=== PATIENT | male | born 1955 | race African-American/Black ===

== ENCOUNTER 2017-07-17 10:11 | Emergency (ER) | payer BC, OTHER ==
[2017-07-17] MEDS ORDERED: Ketorolac Tromethamine 30 MG/ML VIAL ONE (10:42)
[2017-07-17 10:56] LABS: #Basophils 0.1 thou/uL (0.0-0.2); #Eosinphils 0.1 thou/uL (0.0-0.7); #Lymphocytes 1.2 thou/uL (1.20-3.40); #Monocytes 1.4 thou/uL (0.11-0.59); #Neutrophils 14.6 thou/uL (1.40-6.50); %Basophils 0.5 % (0.0-1.0); %Eosinophils 0.4 % (0.0-10.0); %Lymphocytes 6.8 % (21.0-51.0); %Monocytes 8.1 % (0.0-10.0); %Neutrophils 84.2 % (42.0-75.0); Hemoglobin 14.8 g/dL (14.0-18.0); Mean Corpuscular HGB CONC 32.4 g/dL (32.0-36.0); Mean Corpuscular Hemoglobin 33.1 pg (27.0-31.0); Mean Platelet Volume 7.6 fL (7.4-10.4); Platelet Count 172 thou/uL (130-400); Red Blood Cell (RBC) Count 4.47 mill/uL (4.70-6.10); White Blood Cell (WBC) Count 17.3 thou/uL (4.8-10.8)
[2017-07-17] MEDS ORDERED: Cyclobenzaprine 10 MG TAB ONE (11:08)
[2017-07-17 11:20] LABS: ALT (SGPT) 22 U/L (8-55); AST (SGOT) 20 U/L (5-34); Albumin 4.1 g/dL (3.5-5.0); Alkaline Phosphatase 71 U/L (40-150); Anion Gap 15 mmol/L (10-20); BUN (Urea Nitrogen) 18 mg/dL (8.4-25.7); Calc. Creatinine Clearance 0 mL/min (70-130); Calcium 10.1 mg/dL (7.8-10.44); Carbon Dioxide 23 mmol/L (22-29); Chloride 104 mmol/L (98-107); Estimated GFR-MDRD 80; Globulin 3.1 g/dL (2.4-3.5); Glucose 110 mg/dL (70-105); Potassium 3.8 mmol/L (3.5-5.1); Protein, Total 7.2 g/dL (6.0-8.3); Sodium 138 mmol/L (136-145)
--- NOTE | 2017-07-17 11:47 | RAD ---
TWO VIEW CHEST: Clinical history: Chest pain. FINDINGS: There is no consolidation or effusion. No discrete pneumothorax. Cardiac silhouette is within normal size. IMPRESSION: No focal consolidation. POS: [facility]
--- NOTE | 2017-07-17 13:33 | CT ---
CT LUMBAR SPINE WITHOUT CONTRAST: History: Right lower back pain. Muscle spasms. Comparison: None. FINDINGS: The aortic contour is non-aneurysmal. There are moderate vascular calcifications. No calcifications are seen within the renal collecting systems were visualized. Mild thickening of the urinary bladder wall. No acute fracture or malalignment of the lumbar spine. No lumbosacral transitional vertebrae. L1-2: Mild degenerative disc space height loss. Mild facet arthropathy. There is mild bilateral neura l foraminal narrowing. The spinal canal measures approximately 11 mm L2-3: Mild joint space disc height loss. Low grade circumferential disc bulge. Mild facet arthrosis. Increased posterior epidural fat. Spinal canal measures approximately 8 mm. There is moderate left an d right sided neural foraminal narrowing. L3-4: There is moderate degenerative disc space height loss. Schmorl's node at the inferior endplate of L3. Right basilar compression disc bulge. ===== measures approximately 6 mm. There is moderate fac et arthropathy. There is severe right and moderate left sided neural foraminal narrowing. On the righ t, the neural foraminal narrowing is probably due to an osteophyte off the facets. L4-5: Moderate disc space height loss. There is vacuum disc phenomenon at this level as well as the L 3-4. Spinal canal measures 8 mm. Moderate facet arthropathy. Moderate left and moderate to severe rig ht sided neural foraminal narrowing probably due to osteophyte formation of the facets. L5-S1: Mild facet arthrosis. Spinal canal is not narrowed. There is mild bilateral neural foraminal n arrowing. IMPRESSION: 1. Multilevel spondylosis as described above, greatest at L3-4 and L4-5. 2. 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 3. No acute fracture or malalignment of the lumbar spine. POS: [facility]
[2017-07-17 14:00] LABS: Bilirubin Negative (Negative); Blood, Urine Negative (Negative); Clarity CLEAR (Clear); Glucose, Urine (Dipstick) Negative (Negative); Leukocyte Negative (Negative); Nitrite Positive (Negative); Protein, Urine (Dipstick) Negative (Neg-Trace); Specific Gravity, Urine 1.013 (1.002-1.036); Urobilinogen 0.2 mg/dL (0.2-1.0); pH, Urine 6.5 (5.0-9.0)
[2017-07-17 14:03] LABS: Bacteria/HPF None Seen HPF (None Seen); Hyaline Casts/LPF 0-3 HYALINE CAST LPF (0-3 Hyaline); RBC/HPF None Seen HPF (0-3); Squamous Epithelial None Seen HPF (0-3); WBC/HPF None Seen HPF (0-3)
[2017-07-17 14:23] LABS: Crystals/HPF 2+ CA OXALATE HPF (Negative)
== END 2017-07-17 15:05 | disposition home or self-care (01) ==
LOC: ERS 10:11
DX: M79.1 Myalgia (principal); E78.5 Hyperlipidemia, unspecified; F17.210 Nicotine dependence, cigarettes, uncomplicated
CPT/HCPCS: 36415; 71046; 72131; 80053; 81003; 81015; 85025; 87086; 96372; J1885

== ENCOUNTER 2017-11-07 12:34 | Emergency (ER) | payer BC ==
--- NOTE | 2017-11-07 13:46 | RAD ---
THREE VIEWS LUMBAR SPINE: Date: 11-07-17 History: Trauma. Difficulty ambulating. Comparison: 02-06-11 FINDINGS: There are five non-rib bearing lumbar type vertebral bodies. Multilevel osteophytes are present with mild narrowing of the intervertebral disc spaces at the L3-4 and L4-5 levels. Vertebral body heights are within normal limits. No fracture or subluxation is seen. There has been no interval change when compared to the prior exam. IMPRESSION: Mild degenerative changes in the lumbar spine, but no acute osseous abnormality is seen. POS: [facility]
== END 2017-11-07 14:59 | disposition home or self-care (01) ==
LOC: ERS 12:34
DX: M54.5 Low back pain (principal); G89.29 Other chronic pain; E78.5 Hyperlipidemia, unspecified; F17.210 Nicotine dependence, cigarettes, uncomplicated; Z79.899 Other long term (current) drug therapy
CPT/HCPCS: 72100

== ENCOUNTER 2018-07-11 10:26 | Emergency (ER) | payer BC, MEDICAID, OTHER, SELFPAY ==
[2018-07-11] MEDS ORDERED: Dexamethasone 10 MG/ML VIAL ONE (11:08)
[2018-07-11] MEDS ORDERED: Metoclopramide HCl 10 MG/2 ML VIAL ONE (11:08)
[2018-07-11] MEDS ORDERED: Ketorolac Tromethamine 30 MG/ML VIAL ONE (11:08)
[2018-07-11 11:30] LABS: Hemoglobin 13.6 g/dL (14.0-18.0); Mean Corpuscular HGB CONC 34.3 g/dL (32.0-36.0); Mean Corpuscular Hemoglobin 33.9 pg (27.0-31.0); Mean Corpuscular Volume 98.8 fL (78.0-98.0); Platelet Count 204 thou/uL (130-400); RBC Distribution Width 12.7 % (11.5-14.5); Red Blood Cell (RBC) Count 4.02 mill/uL (4.70-6.10); White Blood Cell (WBC) Count 7.4 thou/uL (4.8-10.8)
[2018-07-11 11:38] LABS: ALT (SGPT) 23 U/L (8-55); AST (SGOT) 21 U/L (5-34); Albumin 3.7 g/dL (3.4-4.8); Alkaline Phosphatase 75 U/L (40-150); Anion Gap 13 mmol/L (10-20); BUN (Urea Nitrogen) 14 mg/dL (8.4-25.7); Bilirubin, Total 0.5 mg/dL (0.2-1.2); Calc. Creatinine Clearance 0 mL/min (70-130); Calcium 9.2 mg/dL (7.8-10.44); Carbon Dioxide 23 mmol/L (23-31); Chloride 107 mmol/L (98-107); Estimated GFR-MDRD 87; Globulin 3.4 g/dL (2.4-3.5); Glucose 101 mg/dL (80-115); Potassium 3.4 mmol/L (3.5-5.1); Protein, Total 7.1 g/dL (5.8-8.1); Sodium 140 mmol/L (136-145)
[2018-07-11 11:48] LABS: Band 1 % (5-11); Eosinophils 4 % (0-10); Lymphocytes 16 % (21-51); MDiff Complete? YES; Monocytes 13 % (0-10); Neutrophil 50 % (42-75); Nucleated RBC 1 % (0); PLT Morphology Comment Appears Adequate; Reactive Lymphocytes 16 % (0-10)
--- NOTE | 2018-07-11 13:49 | CT ---
NONCONTRAST CT HEAD: DATE: 07/11/2018. HISTORY: Headache for 5 days. COMPARISON: 02/06/2011. FINDINGS: There is no evidence of a hemorrhage, acute infarction, mass effect, or midline shift. The ventricul ar system is normal in size, shape, and position. Mucosal thickening is seen in a few ethmoidal air cells on the right. Mastoid air cells are clear. Calvarial structures are intact. No other interva l change. IMPRESSION: 1. No acute intracranial abnormalities demonstrated. 2. Minimal sinus disease. POS: [facility]
== END 2018-07-11 12:25 | disposition home or self-care (01) ==
LOC: ERS 10:26
DX: R51 Headache (principal); E78.5 Hyperlipidemia, unspecified; F17.210 Nicotine dependence, cigarettes, uncomplicated; Z79.899 Other long term (current) drug therapy
CPT/HCPCS: 36415; 70450; 80053; 85025; 96361; 96374; 96375; J1100; J1885; J2765

== ENCOUNTER 2018-09-19 13:52 | Emergency (ER) | payer OTHER ==
--- NOTE | 2018-09-19 14:34 | RAD ---
RADIOGRAPH ABDOMEN 1 VIEW: DATE: 09/19/2018. TIME: 2:03 p.m. HISTORY: A 62-year-old male with constipation. FINDINGS: A single supine KUB. Moderate amount of stool in the rectum. Gas in multiple nondilated loops of sm all intestine and colon in the upper portion of the abdominal cavity. No evidence of organomegaly. IMPRESSION: No evidence of small bowel obstruction. POS: [facility]
== END 2018-09-19 15:00 | disposition home or self-care (01) ==
LOC: ERS 13:52
DX: K59.00 Constipation, unspecified (principal); E78.5 Hyperlipidemia, unspecified; F17.210 Nicotine dependence, cigarettes, uncomplicated; Z79.899 Other long term (current) drug therapy
CPT/HCPCS: 74018

== ENCOUNTER 2018-12-28 05:33 | Emergency (ER) | payer OTHER ==
[2018-12-28] MEDS ORDERED: Morphine 4 MG/ML VIAL ONE (06:09)
[2018-12-28] MEDS ORDERED: Ketorolac Tromethamine 30 MG/ML VIAL ONE (06:09)
[2018-12-28 06:13] LABS: Hemoglobin 14.7 g/dL (14.0-18.0); Mean Corpuscular HGB CONC 33.8 g/dL (32.0-36.0); Mean Corpuscular Hemoglobin 33.4 pg (27.0-31.0); Mean Corpuscular Volume 98.9 fL (78.0-98.0); Mean Platelet Volume 7.8 fL (7.4-10.4); Platelet Count 168 thou/uL (130-400); RBC Distribution Width 12.6 % (11.5-14.5)
[2018-12-28 06:27] LABS: Eosinophils 3 % (0-10); Lymphocytes 23 % (21-51); MDiff Complete? YES; Monocytes 13 % (0-10); Neutrophil 61 % (42-75); Platelet Morphology Comment Appears Adequate
[2018-12-28 06:32] LABS: ALT (SGPT) 16 U/L (8-55); AST (SGOT) 16 U/L (5-34); Albumin 4.2 g/dL (3.4-4.8); Alkaline Phosphatase 73 U/L (40-150); Anion Gap 15 mmol/L (10-20); BUN (Urea Nitrogen) 14 mg/dL (8.4-25.7); Calc. Creatinine Clearance 0 mL/min (70-130); Calcium 9.6 mg/dL (7.8-10.44); Carbon Dioxide 26 mmol/L (23-31); Chloride 102 mmol/L (98-107); Estimated GFR-MDRD 74; Globulin 3.2 g/dL (2.4-3.5); Glucose 104 mg/dL (80-115); Protein, Total 7.4 g/dL (5.8-8.1); Sodium 139 mmol/L (136-145)
[2018-12-28] MEDS ORDERED: Enoxaparin Sodium 100 MG/ML SYRINGE ONE (07:40)
--- NOTE | 2018-12-28 07:46 | RAD ---
XR Ankle Rt 3 View STANDARD HISTORY: Right ankle pain and swelling FINDINGS: No acute fracture or dislocation is identified. The ankle mortise is maintained. There are well-corti cated bony densities inferior to the medial and lateral malleoli likely due to old trauma or unfused ossicles.
--- NOTE | 2018-12-28 07:53 | ULT ---
ULTRASOUND WITH DOPPLER DUPLEX VENOUS LOWER EXTREMITY RIGHT CPT: 66420 ICD-10-PCS: B54D HISTORY: Right lower extremity pain and edema. TECHNIQUE: Color flow Doppler, spectral waveform analysis of pulsed Doppler, and hernandez-scale imaging with vicenta troy and augmentation, were used to evaluate the bilateral common femoral, femoral, popliteal, associate accountant ior tibial, and superficial femoral, veins; and the proximal portions of the profunda femoral and gre ater saphenous, veins. FINDINGS: There is a lack of normal compressibility with diminished flow and increased central and low [place] of the deep vein system of the right lower extremity from the level of the common femoral vein t o the posterior tibial vein. IMPRESSION: Extensive deep vein thrombosis throughout the right lower extremity. POS: [facility]
== END 2018-12-28 08:07 | disposition home or self-care (01) ==
LOC: ERS 05:33
DX: I82.401 Acute embolism and thrombosis of unspecified deep veins of right lower extremity (principal); Z71.6 Tobacco abuse counseling; E78.5 Hyperlipidemia, unspecified; F17.210 Nicotine dependence, cigarettes, uncomplicated; Z79.899 Other long term (current) drug therapy
CPT/HCPCS: 36415; 80053; 85025; 85379; J1650; J1885; J2270

== ENCOUNTER 2018-12-31 18:19 | Emergency (ER) | payer OTHER ==
[~2018-12-31 18:19] MED LIST: ISOVUE-370 76%-LOCM 1 ML ONE
[2018-12-31 19:45] LABS: #Basophils 0.1 thou/uL (0.0-0.2); #Eosinphils 0.3 thou/uL (0.0-0.7); #Lymphocytes 1.9 thou/uL (1.20-3.40); #Monocytes 0.8 thou/uL (0.11-0.59); #Neutrophils 4.1 thou/uL (1.40-6.50); %Basophils 1.4 % (0.0-1.0); %Eosinophils 3.7 % (0.0-10.0); %Lymphocytes 26.6 % (21.0-51.0); %Monocytes 11.7 % (0.0-10.0); %Neutrophils 56.6 % (42.0-75.0); Hemoglobin 14.3 g/dL (14.0-18.0); Mean Corpuscular HGB CONC 33.6 g/dL (32.0-36.0); Mean Corpuscular Hemoglobin 33.1 pg (27.0-31.0); Mean Corpuscular Volume 98.5 fL (78.0-98.0); Mean Platelet Volume 7.1 fL (7.4-10.4); Platelet Count 258 thou/uL (130-400); RBC Distribution Width 12.7 % (11.5-14.5); Red Blood Cell (RBC) Count 4.31 mill/uL (4.70-6.10); White Blood Cell (WBC) Count 7.2 thou/uL (4.8-10.8)
--- NOTE | 2018-12-31 19:50 | RAD ---
CHEST ONE VIEW: 12/31/18 HISTORY: Chest pain. Heart size and mediastinum are within normal limits. The lungs are clear of infiltrates. Some arthrit ic changes of the left shoulder noted. IMPRESSION: No active intrathoracic disease. POS: [facility]
[2018-12-31 20:07] LABS: ALT (SGPT) 33 U/L (8-55); AST (SGOT) 22 U/L (5-34); Albumin 4.2 g/dL (3.4-4.8); Alkaline Phosphatase 73 U/L (40-150); Anion Gap 15 mmol/L (10-20); BUN (Urea Nitrogen) 20 mg/dL (8.4-25.7); Bilirubin, Total 0.5 mg/dL (0.2-1.2); Calc. Creatinine Clearance 0 mL/min (70-130); Calcium 9.4 mg/dL (7.8-10.44); Carbon Dioxide 22 mmol/L (23-31); Chloride 106 mmol/L (98-107); Estimated GFR-MDRD 65; Globulin 2.8 g/dL (2.4-3.5); Glucose 102 mg/dL (80-115); Lipase 18 U/L (8-78); Potassium 3.8 mmol/L (3.5-5.1); Sodium 139 mmol/L (136-145)
[2018-12-31 20:09] LABS: INR-International Normal Ratio 1.3; PTT 36.7 SEC (22.9-36.1); Prothrombin Time 16.2 SEC (12.0-14.7)
[2018-12-31] MEDS ORDERED: Acetaminophen 500 MG TAB ONE (20:58)
--- NOTE | 2018-12-31 22:08 | CT ---
CT ANGIO OF CHEST PERFORMED WITH INTRAVENOUS CONTRAST ENHANCEMENT WITH 3D RECONSTRUCTIONS: 12/31/18 HISTORY: Right leg pain related to extensive DVT. Now with chest pain. The lungs are clear of any infiltrative process. No pulmonary nodules or effusions are identified. No significant mediastinal or hilar adenopathy. There is fair pulmonary artery opacification. More peripheral emboli cannot be excluded on the basis of this exam but no embolus is seen. Visualized liver parenchyma shows no focal findings. IMPRESSION: Somewhat limited examination, but no CT evidence for pulmonary embolus. POS: [facility]
--- NOTE | 2019-01-02 11:05 | EKG ---
Test Reason : Blood Pressure : / mmHG Vent. Rate : 083 BPM Atrial Rate : 083 BPM P-R Int : 154 ms QRS Dur : 076 ms QT Int : 348 ms P-R-T Axes : 059 -04 026 degrees QTc Int : 408 ms Normal sinus rhythm Normal ECG Confirmed by FLORY VIVAS ([id number]), editor continuity and script DHEERAJ LOWERY ([id number]) on 01/02/2019 11:05:44 AM Referred By: Confirmed By:FLORY VIVAS
== END 2018-12-31 22:50 | disposition home or self-care (01) ==
LOC: ERS 18:19
DX: I82.401 Acute embolism and thrombosis of unspecified deep veins of right lower extremity (principal); R07.89 Other chest pain; E78.5 Hyperlipidemia, unspecified; F17.210 Nicotine dependence, cigarettes, uncomplicated; Z79.01 Long term (current) use of anticoagulants; Z79.899 Other long term (current) drug therapy
CPT/HCPCS: 36415; 71045; 71275; 80053; 83690; 84484; 85025; 85610; 85730; 93005

== ENCOUNTER 2019-07-03 18:47 | Emergency (ER) | payer OTHER ==
[2019-07-03] MEDS ORDERED: Fleet Enema 133 ML BOT FS SCH (20:15)
[2019-07-04] MEDS ORDERED: Ketorolac Tromethamine 30 MG/ML VIAL ONE (00:13)
== END 2019-07-03 21:19 | disposition home or self-care (01) ==
LOC: ERS 18:47
DX: K59.00 Constipation, unspecified (principal); E78.5 Hyperlipidemia, unspecified; E78.00 Pure hypercholesterolemia, unspecified; F17.210 Nicotine dependence, cigarettes, uncomplicated; Z79.82 Long term (current) use of aspirin; Z79.899 Other long term (current) drug therapy; Z71.6 Tobacco abuse counseling
CPT/HCPCS: 99406; J1885

== ENCOUNTER 2019-07-08 15:21 | Emergency (ER) | payer OTHER ==
--- NOTE | 2019-07-08 16:05 | RAD ---
ABDOMINAL SURVEY WITH UPRIGHT CHEST AND TWO VIEW ABDOMEN: 07/08/19 INDICATIONS: Abdominal pain. FINDINGS: The lung schrader appear clear on the upright chest film. Views of the abdomen on supine upright views show prominent stool and gas throughout the colon. Findi ngs suggest constipation. The small bowel gas pattern is unremarkable. No evidence of dilated small b owel or small bowel obstruction. No free air identified. No mass effect or abnormal calcification. IMPRESSION: Prominent stool throughout the colon. POS: [facility]
[2019-07-08 16:57] LABS: #Basophils 0.1 thou/uL (0.0-0.2); #Eosinphils 0.3 thou/uL (0.0-0.7); #Lymphocytes 2.7 thou/uL (1.20-3.40); #Monocytes 0.5 thou/uL (0.11-0.59); #Neutrophils 2.9 thou/uL (1.40-6.50); %Eosinophils 4.2 % (0.0-10.0); %Monocytes 7.4 % (0.0-10.0); %Neutrophils 45.4 % (42.0-75.0); Hemoglobin 14.2 g/dL (14.0-18.0); Mean Corpuscular HGB CONC 33.7 g/dL (32.0-36.0); Mean Corpuscular Hemoglobin 32.9 pg (27.0-31.0); Mean Corpuscular Volume 97.6 fL (78.0-98.0); Mean Platelet Volume 7.7 fL (7.4-10.4); Platelet Count 199 thou/uL (130-400); RBC Distribution Width 12.8 % (11.5-14.5); Red Blood Cell (RBC) Count 4.31 mill/uL (4.70-6.10); White Blood Cell (WBC) Count 6.5 thou/uL (4.8-10.8)
[2019-07-08 17:20] LABS: ALT (SGPT) 18 U/L (8-55); AST (SGOT) 20 U/L (5-34); Albumin 4.1 g/dL (3.4-4.8); Alkaline Phosphatase 67 U/L (40-110); Anion Gap 11 mmol/L (10-20); BUN (Urea Nitrogen) 23 mg/dL (8.4-25.7); Bilirubin, Total 0.5 mg/dL (0.2-1.2); Calc. Creatinine Clearance 0 mL/min (70-130); Calcium 9.3 mg/dL (7.8-10.44); Carbon Dioxide 25 mmol/L (23-31); Chloride 106 mmol/L (98-107); Estimated GFR-MDRD 56; Globulin 2.7 g/dL (2.4-3.5); Glucose 125 mg/dL (80-115); Potassium 3.9 mmol/L (3.5-5.1); Protein, Total 6.8 g/dL (5.8-8.1); Sodium 138 mmol/L (136-145)
--- NOTE | 2019-07-08 18:15 | CT ---
CT ABDOMEN AND PELVIS WITH IV CONTRAST 07/08/2019 CLINICAL INFORMATION: Abdominal pain and constipation. COMPARISON: Noncontrast CT abdomen and pelvis on 02/06/2017 Technique: Multiple contiguous axial CT images are obtained through the abdomen and pelvis with IV contrast. Cor onal reformatted images are provided. FINDINGS: Lower Chest: Mild dependent bibasilar atelectasis Vessels: Minimal vascular calcifications are seen in the abdominal aorta and iliac arteries. The abdo surjit aorta is normal in caliber. Abdomen: Portal vein:Not well opacified on this examination due to phase of enhancement. Gallbladder: Mostly decompressed. Liver: Within normal limits for phase of imaging. Spleen: Within normal limits for phase of imaging. Pancreas: within normal limits. Adrenals: within normal limits. Kidneys: within normal limits. Bowel: Small to moderate amount of retained fecal material is seen throughout the colon. Loops of sma ll bowel are normal in caliber. Appendix: The appendix is visualized and normal in caliber. Peritoneum: No ascites or free air; no fluid collection. Mesentery and Retroperitoneum: No enlarged mesenteric or retroperitoneal lymph nodes. Abdominal Wall: Tiny fat-containing umbilical hernia is again noted. Pelvis: Reproductive Organs: No pelvic masses. Pelvis within normal limits. Bladder: within normal limits. Bones: There are endplate degenerative changes again seen at the L2-3, L3-4, and L4-5 levels with ass ociated vacuum phenomenon in the intervertebral discs. These findings were noted on the prior exam. IMPRESSION: 1. No acute findings in the abdomen or pelvis. 2. Constipation.
[2019-07-08 18:52] LABS: Bacteria/HPF 4+ HPF (None Seen); Bilirubin Negative (Negative); Blood, Urine Negative (Negative); Clarity Turbid (Clear); Glucose, Urine (Dipstick) Normal (Negative); Leukocyte 250 Leu/uL (Negative); Nitrite 2+ (Negative); Protein, Urine (Dipstick) Negative (Neg-Trace); RBC/HPF 0-3 HPF (0-3); Squamous Epithelial 0-3 HPF (0-3); Urobilinogen Normal mg/dL (Less than 2); WBC/HPF 21-50 HPF (0-3)
== END 2019-07-08 19:04 | disposition home or self-care (01) ==
LOC: ERS 15:21
DX: K59.00 Constipation, unspecified (principal); E78.00 Pure hypercholesterolemia, unspecified; F17.210 Nicotine dependence, cigarettes, uncomplicated; Z79.82 Long term (current) use of aspirin; Z79.899 Other long term (current) drug therapy
CPT/HCPCS: 36415; 74022; 74177; 80053; 81003; 81015; 85025; 96360

== ENCOUNTER 2021-06-26 11:41 | Emergency (ER) | payer OTHER ==
[2021-06-26 12:25] LABS: #Eosinphils 0.3 thou/uL (0.0-0.7); #Lymphocytes 1.5 thou/uL (1.20-3.40); #Monocytes 0.6 thou/uL (0.11-0.59); #Neutrophils 2.6 thou/uL (1.40-6.50); %Basophils 0.6 % (0.0-1.0); %Eosinophils 6.7 % (0.0-10.0); %Lymphocytes 29.6 % (21.0-51.0); %Monocytes 11.6 % (0.0-10.0); %Neutrophils 51.5 % (42.0-75.0); Hemoglobin 15.9 g/dL (14.0-18.0); Mean Corpuscular HGB CONC 32.9 g/dL (32.0-36.0); Mean Corpuscular Hemoglobin 33.7 pg (27.0-31.0); Mean Platelet Volume 8.3 fL (7.4-10.4); Platelet Count 155 thou/uL (130-400); RBC Distribution Width 13.2 % (11.5-14.5); Red Blood Cell (RBC) Count 4.73 mill/uL (4.70-6.10); White Blood Cell (WBC) Count 5.1 thou/uL (4.8-10.8)
[2021-06-26 12:49] LABS: ALT (SGPT) 15 U/L (8-55); AST (SGOT) 20 U/L (5-34); Alkaline Phosphatase 66 U/L (40-110); Anion Gap 11 mmol/L (10-20); BUN (Urea Nitrogen) 16 mg/dL (8.4-25.7); Bilirubin, Total 0.6 mg/dL (0.2-1.2); Calc. Creatinine Clearance 0 mL/min (70-130); Calcium 9.4 mg/dL (7.8-10.44); Carbon Dioxide 24 mmol/L (23-31); Chloride 110 mmol/L (98-107); Globulin 3.1 g/dL (2.4-3.5); Glucose 110 mg/dL (80-115); Potassium 3.9 mmol/L (3.5-5.1); Protein, Total 7.1 g/dL (5.8-8.1); Sodium 141 mmol/L (136-145)
== END 2021-06-26 13:35 | disposition home or self-care (01) ==
LOC: ERS 11:41
DX: L03.116 Cellulitis of left lower limb (principal); L97.528 Non-pressure chronic ulcer of other part of left foot with other specified severity; E78.5 Hyperlipidemia, unspecified; E78.00 Pure hypercholesterolemia, unspecified; F17.210 Nicotine dependence, cigarettes, uncomplicated; M81.0 Age-related osteoporosis without current pathological fracture
CPT/HCPCS: 36415; 80053; 85025

== ENCOUNTER 2021-07-09 13:46 | Emergency (ER) | payer OTHER | END 2021-07-09 16:38 | disposition home or self-care (01) | LOC: ERS 13:46 | DX: L03.116 Cellulitis of left lower limb (principal); E78.5 Hyperlipidemia, unspecified; E78.00 Pure hypercholesterolemia, unspecified; F17.210 Nicotine dependence, cigarettes, uncomplicated | CPT/HCPCS: 99283 ==

== ENCOUNTER 2021-07-23 12:45 | Emergency (ER) | payer OTHER | END 2021-07-23 14:16 | disposition home or self-care (01) | LOC: ERS 12:45 | DX: Z48.00 Encounter for change or removal of nonsurgical wound dressing (principal); L03.116 Cellulitis of left lower limb; E78.5 Hyperlipidemia, unspecified; E78.00 Pure hypercholesterolemia, unspecified; F17.210 Nicotine dependence, cigarettes, uncomplicated | CPT/HCPCS: 99283 ==

== ENCOUNTER 2023-06-20 22:54 | Emergency (ER) | payer OTHER ==
[2023-06-20] MEDS ORDERED: Dexamethasone 10 MG/ML VIAL ONE (23:32)
== END 2023-06-20 23:42 | disposition home or self-care (01) ==
LOC: ERS 22:54
DX: M25.522 Pain in left elbow (principal); M25.521 Pain in right elbow; F17.210 Nicotine dependence, cigarettes, uncomplicated
CPT/HCPCS: 96372; 99283; J1100

== ENCOUNTER 2023-07-20 13:51 | Emergency (ER) | payer OTHER ==
[2023-07-20] MEDS ORDERED: Ketorolac Tromethamine 30 MG (1 mL) VIAL ONE (15:26)
== END 2023-07-20 15:45 | disposition home or self-care (01) ==
LOC: ERS 13:51
DX: H61.23 Impacted cerumen, bilateral (principal); M19.90 Unspecified osteoarthritis, unspecified site; F17.210 Nicotine dependence, cigarettes, uncomplicated; E78.00 Pure hypercholesterolemia, unspecified; Z79.899 Other long term (current) drug therapy
CPT/HCPCS: 69210; 96372; J1885

== ENCOUNTER 2023-08-08 14:47 | Emergency (ER) | payer OTHER ==
[2023-08-08] MEDS ORDERED: Dexamethasone 10 MG/ML VIAL ONE (16:12)
== END 2023-08-08 16:40 | disposition home or self-care (01) ==
LOC: ERS 14:47
DX: M19.90 Unspecified osteoarthritis, unspecified site (principal); G89.29 Other chronic pain; E78.5 Hyperlipidemia, unspecified; F17.210 Nicotine dependence, cigarettes, uncomplicated; Z79.899 Other long term (current) drug therapy
CPT/HCPCS: 96372; 99283; J1100

== ENCOUNTER 2023-08-14 13:09 | Emergency (ER) | payer OTHER ==
[2023-08-14] MEDS ORDERED: Ketorolac Tromethamine 30 MG (1 mL) VIAL ONE (15:20)
[2023-08-14] MEDS ORDERED: predniSONE 20 MG TAB ONE (15:20)
[2023-08-14 15:32] LABS: #Eosinphils 0.3 thou/uL (0.0-0.7); #Monocytes 0.8 thou/uL (0.11-0.59); #Neutrophils 4.4 thou/uL (1.40-6.50); %Basophils 0.1 % (0.0-1.0); %Eosinophils 4.4 % (0.0-10.0); %Lymphocytes 22.4 % (21.0-51.0); %Neutrophils 61.7 % (42.0-75.0); Hematocrit 47.3 % (42.0-52.0); Hemoglobin 15.9 g/dL (14.0-18.0); Mean Corpuscular HGB CONC 33.6 g/dL (32.0-36.0); Mean Corpuscular Hemoglobin 33.5 pg (27.0-31.0); Mean Corpuscular Volume 99.8 fl (78.0-98.0); Mean Platelet Volume 10.4 fL (7.4-10.4); Platelet Count 159 10x3/uL (130-400); RBC Distribution Width 14.2 % (11.5-14.5); Red Blood Cell (RBC) Count 4.74 mill/uL (4.70-6.10); White Blood Cell (WBC) Count 7.1 10x3/uL (4.8-10.8)
[2023-08-14 15:51] LABS: Bacteria/HPF None Seen HPF (None Seen); Bilirubin Negative (Negative); Blood, Urine Negative (Negative); CAUTI Indications for Culture Dysuria,urgency,freq; Clarity Clear (Clear); Glucose, Urine (Dipstick) Normal (Negative); Ketone, Urine Negative (Negative); Leukocyte 25 Leu/uL (Negative); Nitrite Negative (Negative); Protein, Urine (Dipstick) Negative (Neg-Trace); RBC/HPF 0-3 HPF (0-3); Specific Gravity, Urine 1.008 (1.002-1.036); Squamous Epithelial 0-3 HPF (0-3); Urobilinogen Normal mg/dL (Less than 2); WBC/HPF 0-3 HPF (0-3)
[2023-08-14 15:53] LABS: Urine Culture Reflex No No
[2023-08-14 15:55] LABS: ALT (SGPT) 44 U/L (8-55); AST (SGOT) 20 U/L (5-34); Albumin 3.9 g/dL (3.4-4.8); Alkaline Phosphatase 63 U/L (40-110); Anion Gap 11 mmol/L (10-20); BUN (Urea Nitrogen) 17 mg/dL (8.4-25.7); Bilirubin, Total 0.6 mg/dL (0.2-1.2); Calc. Creatinine Clearance 0 mL/min (70-130); Calcium 8.8 mg/dL (7.8-10.44); Carbon Dioxide 24 mmol/L (23-31); Chloride 109 mmol/L (98-107); Estimated GFR 65; Globulin 2.5 g/dL (2.4-3.5); Glucose 89 mg/dL (80-115); Protein, Total 6.4 g/dL (5.8-8.1); Sodium 140 mmol/L (136-145)
== END 2023-08-14 17:00 | disposition home or self-care (01) ==
LOC: ERS 13:09
DX: M25.50 Pain in unspecified joint (principal); E78.5 Hyperlipidemia, unspecified; Z79.899 Other long term (current) drug therapy
CPT/HCPCS: 36415; 80053; 81001; 85025; 87086; 96372; 99283; J1885; J7512

== ENCOUNTER 2023-08-27 16:47 | Emergency (ER) | payer OTHER ==
[2023-08-27] MEDS ORDERED: Ketorolac Tromethamine 30 MG (1 mL) VIAL ONE (17:19)
== END 2023-08-27 17:26 | disposition home or self-care (01) ==
LOC: ERS 16:47
DX: M19.032 Primary osteoarthritis, left wrist (principal); M19.031 Primary osteoarthritis, right wrist; M17.0 Bilateral primary osteoarthritis of knee; E78.5 Hyperlipidemia, unspecified; Z79.899 Other long term (current) drug therapy
CPT/HCPCS: 96372; 99283; J1885

== ENCOUNTER 2023-11-21 00:10 | Emergency (ER) | payer OTHER ==
[2023-11-21] MEDS ORDERED: Acetaminophen 500 MG TAB ONE (01:01)
[2023-11-21] MEDS ORDERED: Orphenadrine Citrate 100 MG ER.TAB ONE (01:01)
[2023-11-21 01:11] LABS: Bilirubin Negative (Negative); Blood, Urine Large (Negative); Glucose, Urine (Dipstick) Negative (Negative); Ketone, Urine Negative (Negative); Leukocyte Moderate (Negative); Nitrite Positive (Negative); Protein, Urine (Dipstick) Trace mg/dL (Neg-Trace); Specific Gravity, Urine 1.015 (1.005-1.030)
[2023-11-21 01:13] LABS: Clarity Cloudy (Clear)
[2023-11-21 01:17] LABS: Bacteria/HPF 4+ HPF (None Seen); CAUTI Indications for Culture Pelvic or flank pain; RBC/HPF Greater than 50 HPF (0-3); Squamous Epithelial 0-3 HPF (0-3); WBC/HPF Greater than 50 HPF (0-3)
[2023-11-21 01:19] LABS: Urine Culture Reflex Yes Yes
[2023-11-21 02:16] LABS: #Basophils Less than 0.03 10x3/uL (0.0-0.2); #Eosinphils Less than 0.03 10x3/uL (0.0-0.7); %Basophils 0.1 % (0.0-1.0); %Eosinophils 0.1 % (0.0-10.0); %Lymphocytes 6.5 % (21.0-51.0); %Monocytes 14.7 % (0.0-10.0); %Neutrophils 78.3 % (42.0-75.0); Hematocrit 38.3 % (42.0-52.0); Mean Corpuscular HGB CONC 33.9 g/dL (32.0-36.0); Mean Corpuscular Hemoglobin 33.7 pg (27.0-31.0); Mean Corpuscular Volume 99.2 fL (78.0-98.0); Mean Platelet Volume 10.2 fL (7.4-10.4); Platelet Count 153 10x3/uL (130-400); RBC Distribution Width 13.5 % (11.5-14.5); Red Blood Cell (RBC) Count 3.86 mill/uL (4.70-6.10)
[2023-11-21] MEDS ORDERED: Sodium Chloride 0.9% 100 ML ONE (02:28)
[2023-11-21] MEDS ORDERED: cefTRIAXone (ROCEPHIN) 1 GM VIAL ONE (02:28)
[2023-11-21 02:30] LABS: ALT (SGPT) 17 U/L (8-55); AST (SGOT) 22 U/L (5-34); Albumin 3.6 g/dL (3.4-4.8); Alkaline Phosphatase 59 U/L (40-110); Anion Gap 15 mmol/L (10-20); BUN (Urea Nitrogen) 14 mg/dL (8.4-25.7); Bilirubin, Total 0.8 mg/dL (0.2-1.2); Calc. Creatinine Clearance 0 mL/min (70-130); Calcium 9.2 mg/dL (7.8-10.44); Carbon Dioxide 18 mmol/L (23-31); Chloride 104 mmol/L (98-107); Estimated GFR 68; Glucose 114 mg/dL (80-115); Potassium 3.3 mmol/L (3.5-5.1); Protein, Total 6.6 g/dL (5.8-8.1); Sodium 134 mmol/L (136-145)
== END 2023-11-21 04:11 | disposition home or self-care (01) ==
LOC: ERS 00:10
DX: N39.0 Urinary tract infection, site not specified (principal); M54.50 Low back pain, unspecified; N42.89 Other specified disorders of prostate; F17.210 Nicotine dependence, cigarettes, uncomplicated; Z79.899 Other long term (current) drug therapy
CPT/HCPCS: 36415; 74176; 80053; 81001; 83605; 85025; 87077; 87086; 87186; 96365; J0696; J3490

== ENCOUNTER 2025-03-21 06:07 | Emergency (ER) | payer OTHER ==
[2025-03-21] MEDS ORDERED: HYDROcodone/Acetaminophen 5/325 mg Tablet ONE (07:01)
[2025-03-21 08:32] LABS: #Basophils 0.03 10x3/uL (0.0-0.2); #Eosinophils 0.19 10x3/uL (0.0-0.7); #Monocytes 0.71 10x3/uL (0.11-0.59); #Neutrophils 3.38 10x3/uL (1.40-6.50); %Basophils 0.6 % (0.0-1.0); %Eosinophils 3.5 % (0.0-10.0); %Lymphocytes 19.4 % (21.0-51.0); %Monocytes 13.2 % (0.0-10.0); %Neutrophils 62.9 % (42.0-75.0); Hematocrit 43.8 % (42.0-52.0); Hemoglobin 14.4 g/dL (14.0-18.0); Mean Corpuscular Hemoglobin 31.5 pg (27.0-31.0); Mean Corpuscular Volume 95.8 fL (78.0-98.0); Platelet Count 232 10x3/uL (130-400); Red Blood Cell (RBC) Count 4.57 mill/uL (4.70-6.10); White Blood Cell (WBC) Count 5.37 10x3/uL (4.8-10.8)
[2025-03-21] MEDS ORDERED: Ketorolac Tromethamine 30 MG (1 mL) VIAL ONE (08:33)
[2025-03-21 08:41] LABS: Bacteria/HPF 4+ HPF (None Seen); CAUTI Indications for Culture Pelvic or flank pain; Glucose, Urine (Dipstick) Normal (Negative); Leukocyte 500 Leu/uL (Negative); Protein, Urine (Dipstick) Negative (Neg-Trace); Specific Gravity, Urine 1.013 (1.002-1.036); WBC/HPF Greater than 50 HPF (0-3)
[2025-03-21 08:46] LABS: ALT (SGPT) 18 U/L (Less than 45); AST (SGOT) 28 U/L (11-34); Albumin 3.9 g/dL (3.1-4.5); Alkaline Phosphatase 94 U/L (40-110); Anion Gap 14 mmol/L (10-20); BUN (Urea Nitrogen) 18 mg/dL (8.4-25.7); Bilirubin, Total 0.3 mg/dL (0.3-1.2); Calc. Creatinine Clearance 0 mL/min (70-130); Calcium 9.2 mg/dL (7.8-10.44); Carbon Dioxide 25 mmol/L (23-31); Chloride 103 mmol/L (98-107); Globulin 3.8 g/dL (2.4-3.5); Glucose 90 mg/dL (80-115); INR-International Normal Ratio 0.9; Potassium 4.0 mmol/L (3.5-5.1); Prothrombin Time 12.7 sec (12.0-14.7); Sodium 138 mmol/L (136-145)
[2025-03-21 08:47] LABS: PTT 33.6 sec (22.9-36.1)
[2025-03-21 08:48] LABS: Urine Culture Reflex Yes Yes
[2025-03-21 08:50] LABS: D-Dimer Test 2.34 mcg/mL (0.27-0.43)
== END 2025-03-21 10:50 | disposition left against medical advice (07) ==
LOC: ERS 06:07
DX: R07.2 Precordial pain (principal); R06.02 Shortness of breath; F17.210 Nicotine dependence, cigarettes, uncomplicated; Z86.718 Personal history of other venous thrombosis and embolism; Z53.29 Procedure and treatment not carried out because of patient's decision for other reasons
CPT/HCPCS: 71045; 80053; 81001; 83880; 84484; 85025; 85379; 85610; 85730; 87077; 87086; 87186; 93005; 94760; 96374; J1885